=== PATIENT | female | born 1975 | race Caucasian/White ===

== ENCOUNTER 2016-08-26 11:21 | Emergency (ER) | payer MEDICAID ==
[2016-08-26] MEDS ORDERED: Sodium Chloride 0.9% 2.5 ML Syringe FLUSH PRN ×2 (11:36)
[2016-08-26] MEDS ORDERED: Sodium Chloride 0.9% 10 ML Syringe FLUSH PRN ×2 (11:36)
--- NOTE | 2016-08-26 11:53 | EDM.PDOC ---
ED HPI GENERAL MEDICAL PROBLEM - General Chief Complaint: Chest Pain Stated Complaint: CP Time Seen by Provider: 08/26/16 11:28 Source of Information: Reports: Patient History Limitations: Reports: No Limitations - History of Present Illness INITIAL COMMENTS - FREE TEXT/NARRATIVE: Presents reporting off and on anterior chest pain for the last 3 days she states she "aches like the flu" resting makes it better working around the house makes it worse. She states she was raking leaves on Thursday when she first noticed it. She has had some off and on nausea but no vomiting no shortness of breath and no diaphoresis. Sometimes she states the pain is like a numbing or prickly feeling and her left shoulder has been cold. She states that if she presses on her chest it feels better. She is a [id number] smoking history. She had bilateral breast implants about 17 years ago. She states she has always been thin but has lost a little weight in the recent months. She states she has been under considerable stress since her fianc she takes care of a farm and her children by herself and she has significant financial problems. Chest Pain Score (Numeric/FACES): 7 - Related Data Allergies Allergy/AdvReac Type Severity Reaction Status Date / Time amoxicillin [From Augmentin] Allergy Rash Verified 08/26/16 11:34 clavulanic acid Allergy Rash Verified 08/26/16 11:34 [From Augmentin] Home Meds: Home Meds Varenicline Tartrate [Chantix] 1 tab PO DAILY #1 tab.ds.pk 08/26/16 [Rx] Past Medical History - Infectious Disease History Infectious Disease History: Reports: Human Papilloma Virus (HPV) - Past Surgical History Dermatological Surgical History: Reports: Plastic Surgical Reconstruction/Repair , Other (See Below) Social & Family History - Tobacco Use Smoking Status *Q: Current Every Day Smoker Years of Tobacco use: 17 Packs/Tins Daily: 1 - Caffeine Use Caffeine Use: Reports: None - Recreational Drug Use Recreational Drug Use: No ED ROS GENERAL - Review of Systems Review Of Systems: See Below Constitutional: Denies: Fever HEENT: Reports: No Symptoms Respiratory: Reports: No Symptoms Cardiovascular: Reports: Chest Pain Endocrine: Reports: No Symptoms GI/Abdominal: Reports: No Symptoms : Reports: No Symptoms Musculoskeletal: Reports: No Symptoms Skin: Reports: No Symptoms Neurological: Reports: Other ("prickles" across anterior chest) Psychiatric: Reports: No Symptoms Hematologic/Lymphatic: Reports: No Symptoms Immunologic: Reports: No Symptoms ED EXAM, GENERAL - Physical Exam Exam: See Below Exam Limited By: No Limitations General Appearance: Alert, No Apparent Distress Ears: Normal External Exam Nose: Normal Inspection Throat/Mouth: Normal Inspection Head: Atraumatic, Normocephalic Neck: Normal Inspection, Supple, Non-Tender Respiratory/Chest: No Respiratory Distress, Lungs Clear, Normal Breath Sounds Cardiovascular: Normal Peripheral Pulses, Regular Rate, Rhythm, No Edema, No Murmur GI/Abdominal: Soft Extremities: Normal Inspection, Other (no spinal or tomas spinal tenderness. Full range of motion of the left shoulder without hesitation or limitation. Full range of motion of the neck without hesitation or) Neurological: Alert, Oriented, No Motor/Sensory Deficits Psychiatric: Normal Affect, Normal Mood Skin Exam: Warm, Dry, Intact, Normal Color, No Rash Lymphatic: No Adenopathy Course - Vital Signs Last Recorded V/S: Last Vital Signs Temp Pulse 69 08/26/16 11:34 Resp 18 08/26/16 11:34 BP 117/78 08/26/16 11:34 Pulse Ox 100 08/26/16 11:34 - Orders/Labs/Meds Orders: Active Orders 24 hr Category Date Time Status EKG 12 Lead [EKG Documentation Completion] [RC] STAT Care 08/26/16 11:37 Ordered Oxygen Therapy [RC] ASDIRECTED Care 08/26/16 11:37 Ordered CBC WITH AUTO DIFF [HEME] Stat Lab 08/26/16 11:37 Ordered COMPREHENSIVE METABOLIC PN,CMP [CHEM] Stat Lab 08/26/16 11:37 Ordered TROPONIN I [CHEM] Stat Lab 08/26/16 11:37 Ordered Sodium Chloride 0.9% [Saline Flush] Med 08/26/16 11:36 Ordered 10 ml FLUSH ASDIRECTED PRN Sodium Chloride 0.9% [Saline Flush] Med 08/26/16 11:36 Ordered 10 ml FLUSH ASDIRECTED PRN Sodium Chloride 0.9% [Saline Flush] Med 08/26/16 11:36 Ordered 2.5 ml FLUSH ASDIRECTED PRN Sodium Chloride 0.9% [Saline Flush] Med 08/26/16 11:36 Ordered 2.5 ml FLUSH ASDIRECTED PRN Saline Lock Insert [OM.PC] Stat Oth 08/26/16 11:37 Ordered Medication Orders Sodium Chloride (Saline Flush) 10 ml FLUSH ASDIRECTED PRN PRN Reason: Keep Vein Open Sodium Chloride (Saline Flush) 2.5 ml FLUSH ASDIRECTED PRN PRN Reason: Keep Vein Open Sodium Chloride (Saline Flush) 10 ml FLUSH ASDIRECTED PRN PRN Reason: Keep Vein Open Sodium Chloride (Saline Flush) 2.5 ml FLUSH ASDIRECTED PRN PRN Reason: Keep Vein Open Meds: Medications Generic Name Dose Route Start Last Admin Trade Name Freq PRN Reason Stop Dose Admin Sodium Chloride 10 ml 08/26/16 11:36 Saline Flush FLUSH ASDIRECTED PRN Keep Vein Open Sodium Chloride 2.5 ml 08/26/16 11:36 Saline Flush FLUSH ASDIRECTED PRN Keep Vein Open Sodium Chloride 10 ml 08/26/16 11:36 Saline Flush FLUSH ASDIRECTED PRN Keep Vein Open Sodium Chloride 2.5 ml 08/26/16 11:36 Saline Flush FLUSH ASDIRECTED PRN Keep Vein Open Departure - Departure Time of Disposition: 13:16 Disposition: Home, Self-Care 01 Clinical Impression: Cervical radiculopathy Referrals: PCP,None [Primary Care Provider] - Gerry Conti MD [Physician] - Forms: ED Department Discharge Additional Instructions: 1. Please followup with Dr. Conti for the chest pain. 2. You may followup with a chiropractic provider of your choice as you have indicated this has helped you in the past 3. Continue your efforts to quit smoking with Chantix per directions included in the packet. 4. ibuprofen 4-600 mg three times a day or Aleve 2 tabs in the morning or 2 tabs in the evening as needed for pain and inflammation. - My Orders Last 24 Hours: My Active Orders 08/26/16 11:36 Sodium Chloride 0.9% [Saline Flush] 10 ml FLUSH ASDIRECTED PRN Sodium Chloride 0.9% [Saline Flush] 10 ml FLUSH ASDIRECTED PRN Sodium Chloride 0.9% [Saline Flush] 2.5 ml FLUSH ASDIRECTED PRN Sodium Chloride 0.9% [Saline Flush] 2.5 ml FLUSH ASDIRECTED PRN 08/26/16 11:37 EKG 12 Lead [EKG Documentation Completion] [RC] STAT Oxygen Therapy [RC] ASDIRECTED CBC WITH AUTO DIFF [HEME] Stat COMPREHENSIVE METABOLIC PN,CMP [CHEM] Stat TROPONIN I [CHEM] Stat Saline Lock Insert [OM.PC] Stat - Assessment/Plan Last 24 Hours: My Active Orders 08/26/16 11:36 Sodium Chloride 0.9% [Saline Flush] 10 ml FLUSH ASDIRECTED PRN Sodium Chloride 0.9% [Saline Flush] 10 ml FLUSH ASDIRECTED PRN Sodium Chloride 0.9% [Saline Flush] 2.5 ml FLUSH ASDIRECTED PRN Sodium Chloride 0.9% [Saline Flush] 2.5 ml FLUSH ASDIRECTED PRN 08/26/16 11:37 EKG 12 Lead [EKG Documentation Completion] [RC] STAT Oxygen Therapy [RC] ASDIRECTED CBC WITH AUTO DIFF [HEME] Stat COMPREHENSIVE METABOLIC PN,CMP [CHEM] Stat TROPONIN I [CHEM] Stat Saline Lock Insert [OM.PC] Stat
[2016-08-26 12:42] LABS: CHLORIDE,CL 108 mmol/L (98-110); SODIUM,NA 140 mmol/L (136-146)
[2016-08-26] MEDS ORDERED: Ketorolac 60 MG/2 ML SDV IM ONE (13:08)
[2016-08-26 13:39] VITALS: BP 118/82
== END 2016-08-26 13:41 | disposition home or self-care (01) ==
LOC: MW.ED 11:21
DX: M54.12 Radiculopathy, cervical region (principal); R07.89 Other chest pain; F17.210 Nicotine dependence, cigarettes, uncomplicated; Z88.1 Allergy status to other antibiotic agents; Z79.899 Other long term (current) drug therapy
CPT/HCPCS: 36415; 80053; 84484; 85025; 93005; 99283; 99285-25